=== PATIENT | female | born 1980 | race American Indian/Alaskan Native ===

== ENCOUNTER 2018-09-07 08:59 | Emergency (ER) | payer MEDICAID, OTHER ==
[2018-09-07 09:06] VITALS: BP 129/81
[2018-09-07] MEDS ORDERED: ASPIRIN PO ONE (09:07)
[2018-09-07 09:30] LABS: Eosinophils % (Auto) 0.5 % (0.0-4.3); Hematocrit 30.4 % (30.3-42.9); Hemoglobin 9.5 gm/dl (10.1-14.3); Lymphocytes # (Auto) 1.4 K/mm3 (1.2-5.4); Lymphocytes % (Auto) 29.6 % (13.4-35.0); Mean Corpuscular HGB Conc 31 % (30-34); Mean Corpuscular Volume 69 fl (79-97); Monocytes # (Auto) 0.4 K/mm3 (0.0-0.8); Monocytes % (Auto) 7.5 % (0.0-7.3); Platelet Count 306 K/mm3 (140-440); Red Blood Count 4.41 M/mm3 (3.65-5.03); Red Cell Distribution Width 20.1 % (13.2-15.2)
--- NOTE | 2018-09-07 09:35 | XRay Report ---
CHEST ONE VIEW INDICATION: Chest pain. COMPARISON: None similar. FINDINGS: Portable, single, frontal chest radiograph demonstrates normal cardiomediastinal silhouette. Clear lungs. Unremarkable bones. CONCLUSION: No acute disease in the chest. Thank you for the opportunity to participate in this patient's care.
[2018-09-07 09:50] LABS: BUN/Creatinine Ratio 20; Blood Urea Nitrogen 12 mg/dL (7-17); Calcium 8.9 mg/dL (8.4-10.2); Hemolysis Index 5
--- NOTE | 2018-09-07 11:14 | Emergency Department Report ---
ED Chest Pain HPI - General Chief Complaint: Chest Pain Stated Complaint: CHEST PAIN Time Seen by Provider: 09/07/18 10:22 Source: patient Mode of arrival: Ambulatory Limitations: No Limitations - History of Present Illness Initial Comments: Patient is a 38-year-old healthy looking female who presents to ED complaining last night she started to experience some pain in second and third intercostal space. She states the pain is localized there And worsening with movement of the muscle. Patient states that the only thing she is notices she has been carrying her backpack to school and is been quite heavy. Other than that she has had no trauma falls or injuries to the chest. She denies dizziness, shortness of breath, headache, coughing, fever, nausea vomiting or any other symptoms. MD Complaint: chest pain -: Sudden Onset: during rest Pain Location: substernal Pain Radiation: none Severity: mild Quality: aching Consistency: intermittent re: denies: nausea, vomting, diaphoresis, dyspnea Other Symptoms: denies: cough, fever, syncope, rash - Related Data Home Medications Medication Instructions Recorded Confirmed Last Taken Depo-Provera 1 ampul IM [id number] 11/04/14 11/04/14 Unknown Tablet 1 tab PO DAILY 11/04/14 11/04/14 Unknown Previous Rx's Medication Instructions Recorded Last Taken Type Labetalol [Normodyne TAB] 200 mg PO BID #60 tablet 11/05/14 Unknown Rx Naproxen [Naprosyn TAB] 500 mg PO BID #30 tablet 09/07/18 Unknown Rx Allergies Allergy/AdvReac Type Severity Reaction Status Date / Time No Known Allergies Allergy Unverified 02/20/14 09:57 Heart Score - HEART Score History: Slightly suspicious EKG: Normal Age: < 45 Risk factors: No known risk factors Troponin: < normal limit HEART Score: 0 ED Review of Systems ROS: Stated complaint: CHEST PAIN Other details as noted in HPI Comment: All other systems reviewed and negative ED Past Medical Hx - Past Medical History Previous Medical History?: No Hx Hypertension: No Hx Congestive Heart Failure: No Hx Diabetes: No Hx Deep Vein Thrombosis: No Hx Renal Disease: No Hx Sickle Cell Disease: No Hx Arthritis: Yes Hx Seizures: No Hx Asthma: No Hx COPD: No Hx HIV: No - Surgical History Past Surgical History?: No - Social History Smoking Status: Never Smoker Substance Use Type: Alcohol - Medications Home Medications: Home Medications Medication Instructions Recorded Confirmed Last Taken Type Depo-Provera 1 ampul IM [id number] 11/04/14 11/04/14 Unknown History Tablet 1 tab PO DAILY 11/04/14 11/04/14 Unknown History Labetalol [Normodyne TAB] 200 mg PO BID #60 tablet 11/05/14 Unknown Rx Naproxen [Naprosyn TAB] 500 mg PO BID #30 tablet 09/07/18 Unknown Rx ED Physical Exam - General Limitations: No Limitations General appearance: alert, in no apparent distress - Head Head exam: Present: atraumatic, normocephalic - Eye Eye exam: Present: normal appearance - ENT ENT exam: Present: mucous membranes moist - Neck Neck exam: Present: normal inspection - Respiratory Respiratory exam: Present: normal lung sounds bilaterally. Absent: respiratory distress, wheezes, rales, chest wall tenderness, accessory muscle use - Cardiovascular Cardiovascular Exam: Present: regular rate, normal rhythm. Absent: systolic murmur, diastolic murmur, rubs, gallop - GI/Abdominal GI/Abdominal exam: Present: soft, normal bowel sounds - Extremities Exam Extremities exam: Present: normal inspection - Back Exam Back exam: Present: normal inspection - Neurological Exam Neurological exam: Present: alert, oriented X3 - Psychiatric Psychiatric exam: Present: normal affect, normal mood - Skin Skin exam: Present: warm, dry, intact, normal color. Absent: rash ED Course Vital Signs 09/07/18 09:04 Temperature 98.1 F Pulse Rate 74 Respiratory 16 Rate Blood Pressure 129/81 O2 Sat by Pulse 100 Oximetry SHANA score - Shana Score Age > 65: (0) No Aspirin use within the Past 7 Days: (0) No 3 or more CAD Risk Factors: (0) No 2 or more Angina events in past 24 hrs: (0) No Known CAD with more than 50% Stenosis: (0) No Elevated Cardiac Markers: (0) No ST Deviation Greater than 0.5mm: (0) No SHANA Score: 0 ED Medical Decision Making - Lab Data Result diagrams: 09/07/18 09:17 09/07/18 09:14 - Radiology Data Radiology results: report reviewed, image reviewed Fluoro Time In Minutes: CHEST ONE VIEW INDICATION: Chest pain. COMPARISON: None similar. FINDINGS: Portable, single, frontal chest radiograph demonstrates normal cardiomediastinal silhouette. Clear lungs. Unremarkable bones. CONCLUSION: No acute disease in the chest. Thank you for the opportunity to participate in this patient's care. Transcribed By: RS Dictated By: NATHANIEL CRUZ MD Electronically Authenticated By: NATHANIEL CRZU MD Signed Date/Time: 09/07/18 0935 - Medical Decision Making 38-year-old female presents to costochondral type chest pain. All labs are within normal limits troponin negative, chest x-ray shows no acute findings. Discussed all findings with the patient. Discussed with the patient is symptoms worsen or new symptoms of symptoms to return to ED. Data signs are normal she is in no acute distress or respiratory distress. Patient's instructions. Discuss a follow-up with primary care physician. Critical care attestation.: If time is entered above; I have spent that time in minutes in the direct care of this critically ill patient, excluding procedure time. ED Disposition Clinical Impression: Costochondral chest pain Disposition: DC- TO HOME OR SELFCARE Is pt being admited?: No Does the pt Need Aspirin: No Condition: Stable Instructions: Chest Pain (ED), Costochondritis (ED), Heat Pack Application (ED) Additional Instructions: Make sure to follow up with the primary care physician as discussed. Take all your medications as you've been prescribed. If you have any worsening symptoms or develop new symptoms please return to ED immediately. Prescriptions: Naproxen [Naprosyn TAB] 500 mg PO BID #30 tablet Referrals: PADMINI RUTH MD [Staff Physician] - 3-5 Days [facility] [Provider Group] - 3-5 Days Forms: Work/School Release Form(ED) Time of Disposition: 11:52
== END 2018-09-07 12:10 | disposition home or self-care (01) ==
LOC: ED 08:59
DX: M94.0 Chondrocostal junction syndrome [Tietze] (principal); M19.90 Unspecified osteoarthritis, unspecified site; Z79.899 Other long term (current) drug therapy
CPT/HCPCS: 36415; 71045; 80048; 84484; 85025; 93005; 93010

== ENCOUNTER 2019-03-17 08:37 | Emergency (ER) | payer OTHER ==
[2019-03-17 09:15] VITALS: BP 121/76
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
== END 2019-03-17 10:37 | disposition home or self-care (01) ==
LOC: ED 08:37
DX: S39.012A Strain of muscle, fascia and tendon of lower back, initial encounter (principal); M19.90 Unspecified osteoarthritis, unspecified site; Z79.1 Long term (current) use of non-steroidal anti-inflammatories (NSAID); Z79.899 Other long term (current) drug therapy; V89.2XXA Person injured in unspecified motor-vehicle accident, traffic, initial encounter; Y93.89 Activity, other specified; Y92.488 Other paved roadways as the place of occurrence of the external cause; Y99.8 Other external cause status
CPT/HCPCS: 72100; 99283

== ENCOUNTER 2021-02-17 04:06 | Emergency (ER) | payer SELFPAY ==
[2021-02-17 04:18] VITALS: BP 138/80
--- NOTE | 2021-02-17 04:18 | Emergency Department Report ---
ED Neck Pain/Injury HPI - General Stated Complaint: RT SIDE NECK PAIN Time Seen by Provider: 02/17/21 04:14 - History of Present Illness Initial Comments: Patient presents with right neck pain. A bump ago, she states that she woke up with "a crick in her neck." She thought she just slept on it wrong. Since that time, she has had ongoing pain in the right side of her neck. Pain seems to radiate down the right arm. She has had intermittent paresthesias involving the right arm as well. This is in the proximal arm, not lower arm. She has not noticed any weakness. There is no history of recent travel or trauma. She has no cough or congestion but there is no vomiting or diarrhea. She has no chest pain. She has no other neurologic symptoms involving the upper extremities. There is no headache. There is no blurry vision. 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 - Related Data Home Medications Medication Instructions Recorded Confirmed Last Taken Depo-Provera 1 ampul IM [id number] 11/04/14 11/04/14 Unknown Tablet 1 tab PO DAILY 11/04/14 11/04/14 Unknown Previous Rx's Medication Instructions Recorded Last Taken Type labetaloL [Labetalol 200mg TAB] 200 mg PO BID #60 tablet 11/05/14 Unknown Rx Naproxen [Naprosyn TAB] 500 mg PO BID #30 tablet 09/07/18 Unknown Rx Cyclobenzaprine [Flexeril] 10 mg PO QHS PRN #10 tablet 03/17/19 Unknown Rx Ibuprofen [Motrin 600 MG tab] 600 mg PO Q8H PRN #20 tablet 02/17/21 Unknown Rx Lidocaine [Lidoderm] 1 each TP DAILY PRN #30 adh..patch 02/17/21 Unknown Rx Allergies Allergy/AdvReac Type Severity Reaction Status Date / Time No Known Allergies Allergy Unverified 03/17/19 08:41 ED Review of Systems ROS: Stated complaint: RT SIDE NECK PAIN Other details as noted in HPI Comment: All other systems reviewed and negative Constitutional: denies: fever ENT: denies: throat pain Respiratory: denies: cough Cardiovascular: denies: chest pain Gastrointestinal: denies: abdominal pain Musculoskeletal: as per HPI. denies: back pain Neurological: as per HPI, numbness (Intermittent), paresthesias (Intermittent) Psychiatric: denies: homicidal thoughts, suicidal thoughts ED Past Medical Hx - Past Medical History Hx Hypertension: No Hx Congestive Heart Failure: No Hx Diabetes: No Hx Deep Vein Thrombosis: No Hx Renal Disease: No Hx Sickle Cell Disease: No Hx Arthritis: Yes Hx Seizures: No Hx Asthma: No Hx COPD: No Hx HIV: No - Social History Smoking Status: Never Smoker Substance Use Type: Marijuana (Occasional) - Medications Home Medications: Home Medications Medication Instructions Recorded Confirmed Last Taken Type Depo-Provera 1 ampul IM [id number] 11/04/14 11/04/14 Unknown History Tablet 1 tab PO DAILY 11/04/14 11/04/14 Unknown History labetaloL [Labetalol 200mg TAB] 200 mg PO BID #60 tablet 11/05/14 Unknown Rx Naproxen [Naprosyn TAB] 500 mg PO BID #30 tablet 09/07/18 Unknown Rx Cyclobenzaprine [Flexeril] 10 mg PO QHS PRN #10 tablet 03/17/19 Unknown Rx Ibuprofen [Motrin 600 MG tab] 600 mg PO Q8H PRN #20 tablet 02/17/21 Unknown Rx Lidocaine [Lidoderm] 1 each TP DAILY PRN #30 adh..patch 02/17/21 Unknown Rx ED Physical Exam - General Limitations: No Limitations, Other (Pulse ox is noted to normal) General appearance: alert, in no apparent distress - Head Head exam: Present: atraumatic, normocephalic, normal inspection - Eye Eye exam: Present: normal appearance, EOMI. Absent: scleral icterus - ENT ENT exam: Present: normal exam, normal external ear exam - Neck Neck exam: Present: normal inspection, tenderness (Tenderness in the right trapezius and paraspinous areas), full ROM. Absent: meningismus - Cardiovascular Cardiovascular Exam: Present: other (Equal and symmetric pulses. No JVD.) - GI/Abdominal GI/Abdominal exam: Present: other (Flat) - Extremities Exam Extremities exam: Present: normal capillary refill, other (Normal range of motion involving the right arm at the shoulder, elbow, and wrist. Normal sensation. Pulses are equal and symmetric.). Absent: tenderness - Back Exam Back exam: Absent: tenderness, paraspinal tenderness - Neurological Exam Neurological exam: Present: alert, CN II-XII intact, normal gait. Absent: motor sensory deficit - Psychiatric Psychiatric exam: Present: normal affect, normal mood - Skin Skin exam: Present: warm, dry ED Course - Reevaluation(s) Reevaluation #1: 02/17/21 04:19 Patient was discharged. ED Medical Decision Making - Medical Decision Making Patient presented with right neck pain and concern for cervical radiculopathy. It is certainly conceivable she has cervical radiculopathy but I think that is less likely. She may benefit from outpatient MRI. There is no indication for emergent MRI. She does not have any symptoms that would suggest fracture or dislocation. There is no mechanism of injury. She does not have any red flag symptoms or warning suggestive of epidural abscess. There is no neurologic deficit that would suggest cord injury, cauda equina, or multiple sclerosis. Critical Care Time: No Critical care attestation.: If time is entered above; I have spent that time in minutes in the direct care of this critically ill patient, excluding procedure time. ED Disposition Clinical Impression: Cervical radicular pain Neck strain Qualifiers: Encounter type: initial encounter Qualified Code(s): S16.1XXA - Strain of muscle, fascia and tendon at neck level, initial encounter Disposition: 01 HOME / SELF CARE / HOMELESS Is pt being admited?: No Condition: Stable Instructions: Radicular Pain, How to Use Cold Therapy, [id number], Cervical Sprain Additional Instructions: Alternate ice and heat. Drink plenty of water. Return for problems. Follow-up with your regular doctor to discuss MRI for cervical radiculopathy. Return if you develop weakness or other problems. Prescriptions: Lidocaine [Lidoderm] 1 each TP DAILY PRN #30 adh..patch PRN Reason: Pain, Mild (1-3) Ibuprofen [Motrin 600 MG tab] 600 mg PO Q8H PRN #20 tablet PRN Reason: Pain Referrals: PRIMARY CARE, [Referring] - 3-5 Days ARANZA ORTIZ MD [Staff Physician] - 3-5 Days
== END 2021-02-17 04:27 | disposition home or self-care (01) ==
LOC: ED 04:06
DX: S16.1XXA Strain of muscle, fascia and tendon at neck level, initial encounter (principal); F12.90 Cannabis use, unspecified, uncomplicated; Z79.899 Other long term (current) drug therapy; X58.XXXA Exposure to other specified factors, initial encounter; Y93.89 Activity, other specified; Y92.89 Other specified places as the place of occurrence of the external cause; Y99.8 Other external cause status
CPT/HCPCS: 99282